=== PATIENT | female | born 1970 | race Two or more races ===

== ENCOUNTER 2017-10-01 15:24 | Emergency (ER) | payer MEDICAID ==
--- NOTE | 2017-10-01 16:22 | ED Physician Chart ---
ED Chief Complaint/HPI - Patient Information Allergies:: Allergies Allergy/AdvReac Type Severity Reaction Status Date / Time No Known Allergies Allergy Verified 10/01/17 15:35 Vitals:: Vital Signs - 8 hr 10/01/17 15:36 Temp 98.5 F HR 90 RR 18 BP 124/70 O2 Sat % 99 ED Assessment - Assessment General Assessment: Patient's came to the back desk to maxwell Hanson, the nurse on 2 to 3 separate occasions. She told him to go back to his room. The first time that he came over he asked Margie how long it was going to be for his to be seen. They had already left [facility] because there was too long of a wait. The third time that he came back to Margie's desk and was in her face, there was another person's paper work face up at her desk. He was leaning over and physically intimidating and in her face. Since another patient's paper wok was right where he was leaning over and looking at it. I asked him to please not be by the desk since we had another patient's paper work there and face up. I then turned the other patient's paper work face down. At this, he became both physically and verbally confrontational to me. His , who was here for chronic back pain apparently said that she didn't want to be seen here any more since her was not allowed to lean over and look at another patient's chart. The and were both physically and verbally confrontational to the staff to the point that security was called. They asked for my boss and Baldemra gave them Dr. Gallo's office number so that they would leave. Otherwise, they refused to leave. Both the and appeared to be on methamphetamines. Baldemar, the charge nurse, could barely get them to leave. I called Dr. Gallo's office to let him know. ED Septic Shock - . Is Septic Shock (SBP<90, OR Lactate>4 mmol\L) present?: No - <6hrs of presentation: Vital Signs: Vital Signs - 8 hr 10/01/17 15:36 Temp 98.5 F HR 90 RR 18 BP 124/70 O2 Sat % 99
== END 2017-10-01 16:23 | disposition left against medical advice (07) ==
LOC: ER 15:24
DX: M54.9 Dorsalgia, unspecified (principal); G89.29 Other chronic pain